=== PATIENT | male | born 1985 | race Caucasian/White ===

== ENCOUNTER → 2021-02-27 10:31 | Outpatient (BNVA) | payer BC, SELFPAY | PROVIDERS: Visit Provider Registered Nurse | DX: Z11.52 Encounter for screening for COVID-19 (principal) | CPT/HCPCS: 87635 ==

== ENCOUNTER → 2021-03-28 13:26 | Outpatient (BNVA) | payer BC, SELFPAY | PROVIDERS: PCP Registered Nurse; Referring Provider Registered Nurse; Visit Provider Physician Assistant | DX: S52.121A Displaced fracture of head of right radius, initial encounter for closed fracture (principal); X58.XXXA Exposure to other specified factors, initial encounter | CPT/HCPCS: 73070 ==

== ENCOUNTER 2021-04-12 10:35 | Outpatient (CLI) | payer BC, SELFPAY ==
--- NOTE | 2021-04-12 11:30 | CT_ITS ---
WS: [id number] CT CHEST TECHNIQUE: Noncontrast CT of the chest with coronal and sagittal reformatted images. CLINICAL INFORMATION: R06.02 - Shortness of breath COMPARISON: None. DLP: 702.[address] scans at [facility] use at least one of these dose optimization techniques: automated e xposure control; mA and/or kV adjustment per patient size (includes targeted exams where dose is matc hed to clinical indication); or iterative reconstruction. FINDINGS: Lungs are well aerated. No acute pulmonary infiltrates. No focal pneumonia or pleural fluid. Multiple subcentimeter pulmonary nodules within both lungs the largest measuring approximately 6 mm in the RI GHT lower lobe near the diaphragm. Most of the small nodules measuring 3 to 4 mm. LEFT perifissure no dularity. Hazy subpleural pulmonary nodule RIGHT lower lobe measuring 5 mm. No mediastinal or hilar lymphadenopathy. Normal caliber thoracic aorta. No axillary lymphadenopathy. Adrenal glands are normal. Normal GE junction. CT/CT chest wo con [id number] IMPRESSION: 1. Multiple small subcentimeter noncalcified pulmonary nodules scattered withi n both lungs some in a subpleural location. Recommend 6 month follow-up chest C T. 2. Largest nodules RIGHT lower lobe measuring 5 to 6 mm. 3. No mediastinal or hilar lymphadenopathy. No axillary lymphadenopathy.
== END 2021-04-12 10:36 | disposition home or self-care (01) ==
LOC: RAD 10:45
PROVIDERS: PCP Registered Nurse; Visit Provider Registered Nurse
DX: R06.02 Shortness of breath (principal); W13.9XXA Fall from, out of or through building, not otherwise specified, initial encounter; R91.8 Other nonspecific abnormal finding of lung field
CPT/HCPCS: 71250

== ENCOUNTER → 2021-04-20 13:03 | Outpatient (BNVA) | payer BC, SELFPAY | PROVIDERS: PCP Registered Nurse; Visit Provider Physician Assistant | DX: S52.121D Displaced fracture of head of right radius, subsequent encounter for closed fracture with routine healing (principal); X58.XXXD Exposure to other specified factors, subsequent encounter | CPT/HCPCS: 73070 ==

== ENCOUNTER → 2024-03-20 13:22 | Outpatient (BNVA) | payer BC, SELFPAY | PROVIDERS: PCP Registered Nurse; Visit Provider Registered Nurse | DX: R50.9 Fever, unspecified (principal) | CPT/HCPCS: 87400; 87880 ==